=== PATIENT | male | born 1980 | race Caucasian/White ===

== ENCOUNTER → 2020-04-10 | Outpatient (CLI) | payer BC ==
[~2020-04-10] MED LIST: HYDROCODON-ACE1 EAC4 PO; IBUPROFEN600 MG PO
[2020-04-10 12:52] LABS: HEMOGLOBIN 15.2 gm/dl (14.0-17.5); RED BLOOD COUNT 5.24 M/UL (4.20-5.50); WHITE BLOOD COUNT 7.3 K/UL (4.5-11.0)
[2020-04-10 14:01] LABS: BUN/CREATININE RATIO 12 (0-10)
[2020-04-11 08:14] LABS: CREATININE, URINE 394.1 mg/dL (Not Estab.)
== END ==
LOC: LAB 11:59
PROVIDERS: Family Medicine
DX: E78.5 Hyperlipidemia, unspecified (principal); E10.9 Type 1 diabetes mellitus without complications; Z79.4 Long term (current) use of insulin
CPT/HCPCS: 36415; 80053; 80061; 82043; 82570; 84443; 85027

== ENCOUNTER 2020-08-10 21:26 | Emergency (ER) | payer BC ==
[~2020-08-10 21:26] MED LIST changes: -HYDROCODON-ACE1 EAC4 PO
[2020-08-10 22:32] LABS: HEMOGLOBIN 14.2 gm/dl (14.0-17.5); RED BLOOD COUNT 4.85 M/UL (4.20-5.50); WHITE BLOOD COUNT 8.4 K/UL (4.5-11.0)
[2020-08-10 22:48] LABS: BUN/CREATININE RATIO 16 (0-10)
[2020-08-10] MEDS ORDERED: HYDROCODON-ACE1 EAC4 PO (23:23)
[2020-08-10] MEDS ORDERED: IBUPROFEN600 MG PO (23:23)
== END 2020-08-10 23:36 | disposition home or self-care (01) ==
LOC: ER1 21:26
PROVIDERS: Emergency Medicine
DX: S93.05XA Dislocation of left ankle joint, initial encounter (principal); S82.832A Other fracture of upper and lower end of left fibula, initial encounter for closed fracture; F17.200 Nicotine dependence, unspecified, uncomplicated; E11.9 Type 2 diabetes mellitus without complications; K21.9 Gastro-esophageal reflux disease without esophagitis; X50.1XXA Overexertion from prolonged static or awkward postures, initial encounter; W19.XXXA Unspecified fall, initial encounter; Y92.009 Unspecified place in unspecified non-institutional (private) residence as the place of occurrence of the external cause
CPT/HCPCS: 27840; 73600; 73610; 80053; 85025; 90471; 90715; 94760; 96374; 99152; 99283; J2270; J2704; J7030